=== PATIENT | female | born 1955 | race American Indian/Alaskan Native ===

== ENCOUNTER 2021-12-23 16:18 | Emergency (ER) | payer MEDICARE, MEDICAID ==
--- NOTE | 2021-12-23 16:41 | Emergency Department Report ---
ED Chest Pain HPI - General Chief Complaint: Abdominal Pain Stated Complaint: ABD PAIN/SOB Time Seen by Provider: 12/23/21 16:28 Source: patient Mode of arrival: Stretcher Limitations: No Limitations - History of Present Illness Initial Comments: Chief complaint abdominal pain HPI: This is a 66-year-old female with history of hypertension, diabetes, dy slipidemia, Peptic ulcer disease, anxiety disorder, chronic back pain, tobacco dependence who presents with epigastric pain sharp 10 out of 10 in severity. She also has shortness of breath. Pain began gradually this morning. She received bad news last night. Close relative suddenly last night. MD Complaint: chest pain (Epigastric pain) -: Gradual, This morning Onset: during rest Severity: severe Severity scale (0 -10): 10 Consistency: intermittent Improves With: nothing Worsens With: nothing Other Symptoms: other (Shortness of breath) Treatments Prior to Arrival: other (EMS) - Related Data Allergies Allergy/AdvReac Type Severity Reaction Status Date / Time No Known Allergies Allergy Unverified 12/23/21 17:05 Heart Score - HEART Score History: Slightly suspicious EKG: Normal Age: > 65 Risk factors: 1-2 risk factors Troponin: < normal limit HEART Score: 3 - EKG Read Time Time EKG Completed: 16:50 EKG Read Time: 16:50 - Critical Actions Critical Actions: 0-3 pts:0.9-1.7%risk of adverse cardiac event.Candidate for discharge ED Review of Systems ROS: Stated complaint: ABD PAIN/SOB Other details as noted in HPI Comment: All other systems reviewed and negative Constitutional: denies: chills, fever, malaise Respiratory: shortness of breath. denies: cough Cardiovascular: chest pain Gastrointestinal: abdominal pain ED Past Medical Hx - Past Medical History Previous Medical History?: Yes Hx Hypertension: Yes Hx Diabetes: Yes Additional medical history: Dyslipidemia - Surgical History Past Surgical History?: Yes Hx Cholecystectomy: Yes - Social History Smoking Status: Current Every Day Smoker Substance Use Type: None ED Physical Exam - General Limitations: No Limitations General appearance: alert, other (Tearful anxious appears in severe pain holding abdomen) - Head Head exam: Present: atraumatic, normocephalic - Eye Eye exam: Present: normal appearance - ENT ENT exam: Present: mucous membranes moist - Neck Neck exam: Present: normal inspection, full ROM - Respiratory Respiratory exam: Present: normal lung sounds bilaterally. Absent: respiratory distress, wheezes, rales, rhonchi - Cardiovascular Cardiovascular Exam: Present: normal rhythm, tachycardia, normal heart sounds. Absent: systolic murmur, diastolic murmur, rubs, gallop - GI/Abdominal GI/Abdominal exam: Present: soft, normal bowel sounds, other (Large surgical scar right upper quadrant). Absent: distended, tenderness, guarding, rebound - Extremities Exam Extremities exam: Present: normal inspection - Neurological Exam Neurological exam: Present: alert, oriented X3 - Psychiatric Psychiatric exam: Present: normal affect, anxious - Skin Skin exam: Present: warm, dry, intact, normal color. Absent: rash ED Course Vital Signs 12/23/21 12/23/21 12/23/21 16:21 16:43 16:46 Temperature 98.1 F Pulse Rate 104 H 102 H 97 H Respiratory 16 30 H 21 Rate Blood Pressure 173/143 Blood Pressure 179/120 [Right] O2 Sat by Pulse 98 94 91 Oximetry 12/23/21 12/23/21 12/23/21 17:00 17:16 17:30 Temperature Pulse Rate 100 H 102 H 95 H Respiratory 26 H 21 19 Rate Blood Pressure 173/143 173/143 162/106 Blood Pressure [Right] O2 Sat by Pulse 94 92 85 Oximetry 12/23/21 12/23/21 12/23/21 17:46 18:00 18:16 Temperature Pulse Rate 98 H 96 H 96 H Respiratory 20 14 15 Rate Blood Pressure 162/106 149/99 149/99 Blood Pressure [Right] O2 Sat by Pulse 91 88 88 Oximetry 12/23/21 12/23/21 18:30 18:46 Temperature Pulse Rate 97 H 98 H Respiratory 16 15 Rate Blood Pressure 159/111 159/111 Blood Pressure [Right] O2 Sat by Pulse 90 88 Oximetry ED Medical Decision Making - Lab Data Result diagrams: 12/23/21 16:55 12/23/21 16:55 Laboratory Results - last 24 hr 12/23/21 12/23/21 16:55 16:55 WBC 10.0 RBC 5.81 H Hgb 15.1 H Hct 47.5 H MCV 82 MCH 26 L MCHC 32 RDW 15.9 H Plt Count 378 Lymph % (Auto) 12.2 L Grady % (Auto) 7.8 H Eos % (Auto) 3.2 Baso % (Auto) 2.2 H Lymph # (Auto) 1.2 Grady # (Auto) 0.8 Eos # (Auto) 0.3 Baso # (Auto) 0.2 H Seg Neutrophils % 74.6 H Seg Neutrophils # 7.4 Sodium 138 Potassium 3.8 Chloride 97.3 L Carbon Dioxide 24 Anion Gap 21 BUN 16 Creatinine 0.9 Estimated GFR > 60 BUN/Creatinine Ratio 18 Glucose 154 H Calcium 9.5 Total Bilirubin 0.40 Direct Bilirubin < 0.2 Indirect Bilirubin 0.2 AST 14 ALT 8 Alkaline Phosphatase 195 H Troponin T < 0.010 Total Protein 8.2 Albumin 4.1 Albumin/Globulin Ratio 1.0 Lipase 15 - EKG Data -: EKG Interpreted by Me EKG shows normal: sinus rhythm Rate: normal - EKG Data 12/23/21 16:54 EKG obtained 1648 EKG interpreted by me Rate 95 bpm normal sinus rhythm abnormal axis right bundle branch block no significant ST elevation nonischemic T wave pattern prolonged QTC - Radiology Data Radiology results: report reviewed Patient Name: DIPAK LACY Gender: Female Date of : 1955 Home Phone: Referring Provider: DELIA BHAGAT Organization: [facility] Accession Number: [id number] Requested Date: December 23, 2021 16:37 Report Status: Final Requested Procedure: 1 Procedure Description: XR chest 1V ap Modality: XR Findings Reporting MD: Feliciano Hernandez Dictation Time: December 23, 2021 16:01 Regional Dedicated Truck Driver: Not available News Content Specialist Date: CHEST 1 VIEW INDICATION / CLINICAL INFORMATION: epigastric pain STUDY TIME: 1639 COMPARISON: None available. FINDINGS: SUPPORT DEVICES: None HEART / MEDIASTINUM: No significant abnormality. LUNGS / PLEURA: No significant acute pulmonary or pleural abnormality. No pneumothorax. ADDITIONAL FINDINGS: No significant additional findings. Signer Name: Feliciano Hernandez MD Signed: 12/23/2021 4:01 PM Workstation Name: [id number] - Medical Decision Making 1. Peptic ulcer disease work-up unremarkable including CBC chemistry troponin lipase no indication of acute coronary syndrome. 2. Anxiety disorder: Patient is very upset about the loss of her godSon. She stated that her symptoms began last night after receiving the horrible news. She received relief with morphine and Zofran. She also received p.o. Xanax. She is discharged home. Critical care attestation.: If time is entered above; I have spent that time in minutes in the direct care of this critically ill patient, excluding procedure time. ED Disposition Clinical Impression: Peptic ulcer disease, Anxiety disorder, Grief reaction Disposition: 01 HOME / SELF CARE / HOMELESS Is pt being admited?: No Does the pt Need Aspirin: No Condition: Stable Instructions: Abdominal Pain (ED), Peptic Ulcer, [id number] Referrals: PRIMARY CARE, [Referring] - 3-5 Days
[2021-12-23] MEDS ORDERED: ONDANSETRON 4 MG/2 ML INJ IV ONE (17:00)
[2021-12-23] MEDS ORDERED: MORPHINE 4 MG/1 ML INJ IV ONE ×2 (17:00→19:09)
--- NOTE | 2021-12-23 17:05 | XRay Report ---
CHEST 1 VIEW INDICATION / CLINICAL INFORMATION: epigastric pain STUDY TIME: 1638 COMPARISON: None available. FINDINGS: SUPPORT DEVICES: None HEART / MEDIASTINUM: No significant abnormality. LUNGS / PLEURA: No significant acute pulmonary or pleural abnormality. No pneumothorax. ADDITIONAL FINDINGS: No significant additional findings. Signer Name: Feliciano Hernandez MD Signed: 12/23/2021 5:01 PM Workstation Name: [id number]
[2021-12-23 17:31] LABS: Basophils # (Auto) 0.2 K/mm3 (0.0-0.1); Basophils % (Auto) 2.2 % (0.0-1.8); Eosinophils # (Auto) 0.3 K/mm3 (0.0-0.4); Eosinophils % (Auto) 3.2 % (0.0-4.3); Hematocrit 47.5 % (30.3-42.9); Hemoglobin 15.1 gm/dl (10.1-14.3); Lymphocytes # (Auto) 1.2 K/mm3 (1.2-5.4); Lymphocytes % (Auto) 12.2 % (13.4-35.0); Mean Corpuscular HGB Conc 32 % (30-34); Mean Corpuscular Volume 82 fl (79-97); Monocytes # (Auto) 0.8 K/mm3 (0.0-0.8); Monocytes % (Auto) 7.8 % (0.0-7.3); Platelet Count 378 K/mm3 (140-440); Red Blood Count 5.81 M/mm3 (3.65-5.03); Red Cell Distribution Width 15.9 % (13.2-15.2)
[2021-12-23 17:36] LABS: Alanine Aminotransferase 8 units/L (7-56); Albumin 4.1 g/dL (3.9-5); BUN/Creatinine Ratio 18; Blood Urea Nitrogen 16 mg/dL (7-17); Calcium 9.5 mg/dL (8.4-10.2); Hemolysis Index 27
[2021-12-23 17:40] LABS: Bilirubin,Direct < 0.2 mg/dL (0-0.2)
[2021-12-23] MEDS ORDERED: ALPRAZolam 0.5 MG TAB PO ONE (19:09)
[2021-12-23 20:00] VITALS: BP 160/107
--- NOTE | 2021-12-26 10:06 | Electrocardiograph Report ---
[facility] Test Date: 2021-12-23 Test Time: 16:48:50 Pat Name: DIPAK LARA Department: Room: Gender: F Surgical Training Specialist: CHINTAN : 1955 Requested By: DELIA BHAGAT Order Number: [id number] Reading MD: Alison Jay Measurements Intervals [place] Rate: 97 P: 40 NM: 136 QRS: -119 QRSD: 131 T: 37 QT: 423 QTc: 539 Interpretive Statements Sinus rhythm Probable left atrial enlargement RBBB AND LAFB Prolonged QT interval No previous ECG available for comparison Electronically Signed On 12-26-2021 10:06:06 EST by Alison Jay
== END 2021-12-23 20:04 | disposition home or self-care (01) ==
LOC: ED 16:18
DX: K27.9 Peptic ulcer, site unspecified, unspecified as acute or chronic, without hemorrhage or perforation (principal); F41.9 Anxiety disorder, unspecified; F43.20 Adjustment disorder, unspecified; I10 Essential (primary) hypertension; E11.9 Type 2 diabetes mellitus without complications; E78.5 Hyperlipidemia, unspecified; Z90.49 Acquired absence of other specified parts of digestive tract; F17.200 Nicotine dependence, unspecified, uncomplicated
CPT/HCPCS: 36415; 71045; 80048; 80076; 83690; 84484; 85025; 93005; 93010; 96374; 96375; 96376; 99284; J2270; J2405